=== PATIENT | female | born 1995 ===

== ENCOUNTER 2019-08-12 20:21 | Inpatient (IN) | payer BC, OTHER ==
[2019-08-12] MEDS ORDERED: Nalbuphine 10 MG/1 ML Vial IVPUSH PRN (20:34)
[2019-08-12] MEDS ORDERED: Sodium Chloride 0.9% 10 ML Syringe FLUSH PRN (20:34)
[2019-08-12] MEDS ORDERED: Sodium Chloride 0.9% 10 ML SDV IV PRN (20:34)
[2019-08-12] MEDS ORDERED: Water For Irrigation,Sterile 1,000 ML Container IRR PRN (20:34)
[2019-08-12] MEDS ORDERED: Butorphanol 1 MG/ML SDV IVPUSH PRN (20:34)
[2019-08-12] MEDS ORDERED: Lidocaine 1% 50 ML MDV INJECT PRN (20:34)
[2019-08-12] MEDS ORDERED: Misoprostol 25 MCG (1/4 of 100 MCG) Tab VAG PRN ×2 (20:34)
[2019-08-12] MEDS ORDERED: Carboprost Tromethamine 250 MCG/1 ML Amp IM PRN (20:34)
[2019-08-12] MEDS ORDERED: Sodium Chloride 0.9% 2.5 ML Syringe FLUSH PRN (20:34)
[2019-08-12] MEDS ORDERED: Ondansetron 4 MG/2 ML SDV IVPUSH PRN (20:34)
[2019-08-12] MEDS ORDERED: Misoprostol 200 MCG Tab PO PRN (20:34)
[2019-08-12] MEDS ORDERED: Terbutaline 1 MG/ML SDV SUBCUT PRN (20:34)
[2019-08-12] MEDS ORDERED: Methylergonovine 0.2 MG/1 ML Amp IM PRN (20:34)
[2019-08-12] MEDS ORDERED: Tranexamic Acid 1,000 MG in Sodium Chloride 0.9% 100 ML IV PRN (20:34)
[2019-08-12] MEDS ORDERED: Oxytocin/0.9 % Sodium Chloride 30 UNIT/500 ML BAG IV SCH ×2 (20:45)
[2019-08-12] MEDS: Lactated Ringers 1,000 ML IV SCH (22:07)
[2019-08-13 08:20] LABS: BLOOD UREA NITROGEN,BUN 5 mg/dL (7.0-18.0); CARBON DIOXIDE,CO2 26.3 mmol/L (21.0-32.0); CHLORIDE,CL 103 mmol/L (98-107); GLUCOSE RANDOM 83 mg/dL (74-106); POTASSIUM,K 4.3 mmol/L (3.5-5.1); SODIUM,NA 138 mmol/L (136-145)
[2019-08-13] MEDS ORDERED: Bupivicaine/fentaNYL/NS 250 ML ONE (13:55)
[2019-08-13] MEDS: Lactated Ringers 1,000 ML IV SCH ×3 (13:56→22:42)
--- NOTE | 2019-08-13 14:48 | PCM.PREANE ---
Preanesthetic Assessment - Anesthesia/Transfusion/Family Hx Anesthesia History: Prior Anesthesia Without Reaction Transfusion History: No Prior Transfusion(s) - Review of Systems General: No Symptoms Pulmonary: No Symptoms Cardiovascular: No Symptoms Gastrointestinal: No Symptoms Neurological: No Symptoms Other: Reports: None - Physical Assessment Height: 5 ft 7 in Weight: 112.945 kg ASA Class: 2 Mental Status: Alert & Oriented x3 Airway Class: Mallampati = 2 Dentition: Reports: Normal Dentition Thyro-Mental Finger Breadths: 3 Mouth Opening Finger Breadths: 3 ROM/Head Extension: Full Lungs: Clear to Auscultation, Normal Respiratory Effort Cardiovascular: Regular Rate, Regular Rhythm - Lab Values: Laboratory Last Values WBC 10.30 K/uL (4.0-11.0) 08/13/19 07:46 RBC 4.35 M/uL (4.30-5.90) 08/13/19 07:46 Hgb 12.3 g/dL (12.0-16.0) 08/13/19 07:46 Hct 36.8 % (36.0-46.0) 08/13/19 07:46 MCV 84.6 fL (80.0-98.0) 08/13/19 07:46 MCH 28.3 pg (27.0-32.0) 08/13/19 07:46 MCHC 33.4 g/dL (31.0-37.0) 08/13/19 07:46 RDW Std Deviation 44.8 fl (28.0-62.0) 08/13/19 07:46 RDW Coeff of Maria L 15 % (11.0-15.0) 08/13/19 07:46 Plt Count 174 K/uL (150-400) 08/13/19 07:46 MPV 11.20 fL (7.40-12.00) 08/13/19 07:46 Add Manual Diff YES 08/13/19 07:46 Neutrophils % (Manual) 76 % (48.0-80.0) 08/13/19 07:46 Band Neutrophils % 2 % 08/13/19 07:46 Lymphocytes % (Manual) 17 % (16.0-40.0) 08/13/19 07:46 Monocytes % (Manual) 3 % (0.0-15.0) 08/13/19 07:46 Eosinophils % (Manual) 1 % (0.0-7.0) 08/13/19 07:46 Myelocytes % 1 % 08/13/19 07:46 Absolute Seg Neuts 7.8 (1.4-5.7) H 08/13/19 07:46 Band Neutrophils # 0.2 08/13/19 07:46 Lymphocytes # (Manual) 1.8 (0.6-2.4) 08/13/19 07:46 Monocytes # (Manual) 0.3 (0.0-0.8) 08/13/19 07:46 Eosinophils # (Manual) 0.1 (0.0-0.7) 08/13/19 07:46 Absolute Myelocytes 0.1 08/13/19 07:46 Sodium 138 mmol/L (136-145) 08/13/19 07:46 Potassium 4.3 mmol/L (3.5-5.1) 08/13/19 07:46 Chloride 103 mmol/L (98-107) 08/13/19 07:46 Carbon Dioxide 26.3 mmol/L (21.0-32.0) 08/13/19 07:46 BUN 5 mg/dL (7.0-18.0) L 08/13/19 07:46 Creatinine 0.6 mg/dL (0.6-1.0) 08/13/19 07:46 Est Cr Clr Drug Dosing 141.81 mL/min 08/13/19 07:46 Estimated GFR (MDRD) > 60.0 ml/min 08/13/19 07:46 Glucose 83 mg/dL (74-106) 08/13/19 07:46 Uric Acid 5.7 mg/dL (2.6-7.2) 08/13/19 07:46 Calcium 9.6 mg/dL (8.5-10.1) 08/13/19 07:46 Total Bilirubin 0.3 mg/dL (0.2-1.0) 08/13/19 07:46 AST 15 IU/L (15-37) 08/13/19 07:46 ALT 18 IU/L (14-63) 08/13/19 07:46 Alkaline Phosphatase 188 U/L (46-116) H 08/13/19 07:46 Total Protein 6.8 g/dL (6.4-8.2) 08/13/19 07:46 Albumin 2.4 g/dL (3.4-5.0) L 08/13/19 07:46 Globulin 4.4 g/dL (2.6-4.0) H 08/13/19 07:46 Albumin/Globulin Ratio 0.6 (0.9-1.6) L 08/13/19 07:46 Ur Random Creatinine 139.7 mg/dL 08/13/19 08:10 U Random Total Protein 44.8 mg/dL (<11.9) H 08/13/19 08:10 Protein/Creatinin Ratio 0.3 08/13/19 08:10 Blood Type B POSITIVE 08/12/19 20:53 Antibody Screen NEGATIVE 08/12/19 20:53 - Allergies Allergies/Adverse Reactions: Allergies Allergy/AdvReac Type Severity Reaction Status Date / Time No Known Allergies Allergy Verified 08/13/19 06:53 - Anesthesia Plan Free Text/Narrative:: Continuous Labor Epidural - Acknowledgements Anesthesia Type Planned: Epidural Pt an Appropriate Candidate for the Planned Anesthesia: Yes Alternatives and Risks of Anesthesia Discussed w Pt/Guardian: Yes Pt/Guardian Understands and Agrees with Anesthesia Plan: Yes PreAnesthesia Questionnaire - Past Health History Medical/Surgical History: Denies Medical/Surgical History HEENT History: Reports: None Cardiovascular History: Reports: None Respiratory History: Reports: None Gastrointestinal History: Reports: GERD Other Gastrointestinal History: GERD with Genitourinary History: Reports: None CAMPUS REP History: Reports: : 1 Para: 0 LMP (Approximate): Musculoskeletal History: Reports: None Neurological History: Reports: None Psychiatric History: Reports: None Endocrine/Metabolic History: Reports: None Hematologic History: Reports: None Immunologic History: Reports: None Oncologic (Cancer) History: Reports: None Dermatologic History: Reports: None - Infectious Disease History Infectious Disease History: Reports: Chicken Pox - Past Surgical History HEENT Surgical History: Reports: Oral Surgery Other HEENT Surgeries/Procedures: wisdom teeth - Past Imaging History Past Imaging History: Reports: None - SUBSTANCE USE Smoking Status *Q: Never Smoker Second Hand Smoke Exposure: No Recreational Drug Use History: No - CURRENT (IN HOUSE) MEDS Current Meds: Current Medications Butorphanol Tartrate (Stadol) 1 mg IVPUSH Q1H PRN PRN Reason: Pain Carboprost Tromethamine (Hemabate Ds) 250 mcg IM ASDIRECTED PRN PRN Reason: Post Hemorrhage Lactated Ringer's (Ringers, Lactated) 1,000 mls @ 150 mls/hr IV ASDIRECTED RADHA Last Admin: 08/13/19 13:56 Dose: 999 mls/hr Oxytocin/Sodium Chloride (Oxytocin 30 Unit/500 Ml-Ns) 30 unit in 500 mls @ 2 mls/hr IV TITRATE RADHA; Protocol Last Titration: 08/13/19 10:31 Dose: 14 munits/min, 14 mls/hr Oxytocin/Sodium Chloride (Oxytocin 30 Unit/500 Ml-Ns) 30 unit in 500 mls @ 999 mls/hr IV TITRATE RADHA Tranexamic Acid 1,000 mg/ (Sodium Chloride) 110 mls @ 660 mls/hr IV ONETIME PRN PRN Reason: Bleeding Lidocaine HCl (Xylocaine 1%) 50 ml INJECT ONETIME PRN PRN Reason: Laceration repair Methylergonovine Maleate (Methergine) 0.2 mg IM ASDIRECTED PRN PRN Reason: Post Hemorrhage Misoprostol (Cytotec) 25 mcg VAG ONETIME PRN PRN Reason: Cervical Ripening Last Admin: 08/12/19 22:19 Dose: 25 mcg Misoprostol (Cytotec) 25 mcg VAG Q4H PRN PRN Reason: Cervical Ripening Misoprostol (Cytotec) 200 mcg PO ONETIME PRN PRN Reason: Post Hemorrhage Nalbuphine HCl (Nubain) 10 mg IVPUSH Q1H PRN PRN Reason: Pain (severe 7-10) Ondansetron HCl (Zofran) 4 mg IVPUSH Q6H PRN PRN Reason: Nausea/Vomiting Sodium Chloride (Saline Flush) 10 ml FLUSH ASDIRECTED PRN PRN Reason: Keep Vein Open Sodium Chloride (Saline Flush) 2.5 ml FLUSH ASDIRECTED PRN PRN Reason: Keep Vein Open Sodium Chloride (Normal Saline) 10 ml IV ASDIRECTED PRN PRN Reason: IV Use Sterile Water (Sterile Water For Irrigation) 1,000 ml IRR ASDIRECTED PRN PRN Reason: delivery Terbutaline Sulfate (Brethine) 0.25 mg SUBCUT ASDIRECTED PRN PRN Reason: Tacysystole Discontinued Medications Fentanyl/Bupivacaine HCl (Fentanyl/Bupivacaine/Ns 2 Mcg-0.125% 250 Ml) Confirm Administered Dose 250 mls @ as directed .ROUTE [facility] [employer] [facility] Stop: 08/13/19 13:56
[2019-08-13] MEDS ORDERED: Lanolin 100% Cream 7 GM Tube TOP PRN (22:31)
[2019-08-13] MEDS ORDERED: oxyCODONE 5 MG Tab PO PRN (22:31)
[2019-08-13] MEDS ORDERED: Witch Hazel Medicated Pads 40/Jar TOP PRN (22:31)
[2019-08-13] MEDS ORDERED: Benzocaine/Menthol 20%-0.5% Spray 78 GM Cannister TOP PRN (22:31)
[2019-08-13] MEDS ORDERED: Bisacodyl 10 MG Supp RECTAL PRN (22:31)
--- NOTE | 2019-08-13 22:36 | PCM.DEL ---
L & D Note - General Info Date of Service: 08/13/19 Mother's Due Date: 08/10/19 - Delivery Note Labor: Induced by Oxytocin Cervical Ripening Method: Misoprostil Delivery Outcome: Livebirth Infant Delivery Method: Spontaneous Vaginal Delivery-Single Presentation: Left Occiput Anterior (SAVANNA) Nuchal Cord: None Anesthesia Type: Epidural Anesthetic: Lidocaine (Xylocaine) 1% Plain Local Anesthetic Volume: Other (20) Amniotic Fluid Description: Clear Episiotomy Type: None Laceration: 2nd Degree Suture type: Vicryl Suture size: 2-0 Placenta: Intact, Spontaneous Cord: 3 Vessels Estimated Blood Loss: 600 Resuscitation Needed: Yes Score 1 min: 3 Score 5 min: 8 Post Delivery Events: Shoulder Dystocia (lasting 4 minutes, resolved with suprapubic pressure, Claudio maneuver, dislodging of posterior shoulder) - General Info Date of Service: 08/13/19 - Patient Data Weight - Most Recent: 112.945 kg Lab Results Last 24 Hours: Laboratory Results - last 24 hr 08/13/19 08/13/19 08/13/19 Range/Units 07:46 07:46 08:10 WBC 10.30 (4.0-11.0) K/uL RBC 4.35 (4.30-5.90) M/uL Hgb 12.3 (12.0-16.0) g/dL Hct 36.8 (36.0-46.0) % MCV 84.6 (80.0-98.0) fL MCH 28.3 (27.0-32.0) pg MCHC 33.4 (31.0-37.0) g/dL RDW Std Deviation 44.8 (28.0-62.0) fl RDW Coeff of Maria L 15 (11.0-15.0) % Plt Count 174 (150-400) K/uL MPV 11.20 (7.40-12.00) fL Add Manual Diff YES Neutrophils % (Manual) 76 (48.0-80.0) % Band Neutrophils % 2 % Lymphocytes % (Manual) 17 (16.0-40.0) % Monocytes % (Manual) 3 (0.0-15.0) % Eosinophils % (Manual) 1 (0.0-7.0) % Myelocytes % 1 % Absolute Seg Neuts 7.8 H (1.4-5.7) Band Neutrophils # 0.2 Lymphocytes # (Manual) 1.8 (0.6-2.4) Monocytes # (Manual) 0.3 (0.0-0.8) Eosinophils # (Manual) 0.1 (0.0-0.7) Absolute Myelocytes 0.1 Sodium 138 (136-145) mmol/L Potassium 4.3 (3.5-5.1) mmol/L Chloride 103 (98-107) mmol/L Carbon Dioxide 26.3 (21.0-32.0) mmol/L BUN 5 L (7.0-18.0) mg/dL Creatinine 0.6 (0.6-1.0) mg/dL Est Cr Clr Drug Dosing 141.81 mL/min Estimated GFR (MDRD) > 60.0 ml/min Glucose 83 (74-106) mg/dL Uric Acid 5.7 (2.6-7.2) mg/dL Calcium 9.6 (8.5-10.1) mg/dL Total Bilirubin 0.3 (0.2-1.0) mg/dL AST 15 (15-37) IU/L ALT 18 (14-63) IU/L Alkaline Phosphatase 188 H (46-116) U/L Total Protein 6.8 (6.4-8.2) g/dL Albumin 2.4 L (3.4-5.0) g/dL Globulin 4.4 H (2.6-4.0) g/dL Albumin/Globulin Ratio 0.6 L (0.9-1.6) Ur Random Creatinine 139.7 mg/dL U Random Total Protein 44.8 H (<11.9) mg/dL Protein/Creatinin Ratio 0.3 Med Orders - Current: Current Medications Acetaminophen (Tylenol Extra Strength) 1,000 mg PO Q6H PRN PRN Reason: Pain Benzocaine/Menthol (Dermoplast Pain Relief 20%-0.5% [place]) 78 gm TOP ASDIRECTED PRN PRN Reason: Perineal Comfort Measure Bisacodyl (Dulcolax) 10 mg RECTAL ONETIME PRN PRN Reason: Constipation Butorphanol Tartrate (Stadol) 1 mg IVPUSH Q1H PRN PRN Reason: Pain Carboprost Tromethamine (Hemabate Ds) 250 mcg IM ASDIRECTED PRN PRN Reason: Post Hemorrhage Docusate Sodium (Colace) 100 mg PO BID PRN PRN Reason: Constipation Emollient Ointment (Lansinoh Hpa) 0 gm TOP ASDIRECTED PRN PRN Reason: Sore Nipples Lactated Ringer's (Ringers, Lactated) 1,000 mls @ 150 mls/hr IV ASDIRECTED RADHA Last Admin: 08/13/19 14:53 Dose: 150 mls/hr Oxytocin/Sodium Chloride (Oxytocin 30 Unit/500 Ml-Ns) 30 unit in 500 mls @ 2 mls/hr IV TITRATE RADHA; Protocol Last Titration: 08/13/19 18:11 Dose: 20 munits/min, 20 mls/hr Oxytocin/Sodium Chloride (Oxytocin 30 Unit/500 Ml-Ns) 30 unit in 500 mls @ 999 mls/hr IV TITRATE RADHA Tranexamic Acid 1,000 mg/ (Sodium Chloride) 110 mls @ 660 mls/hr IV ONETIME PRN PRN Reason: Bleeding Ibuprofen (Motrin) 800 mg PO Q8H PRN PRN Reason: Pain Lidocaine HCl (Xylocaine 1%) 50 ml INJECT ONETIME PRN PRN Reason: Laceration repair Methylergonovine Maleate (Methergine) 0.2 mg IM ASDIRECTED PRN PRN Reason: Post Hemorrhage Misoprostol (Cytotec) 25 mcg VAG ONETIME PRN PRN Reason: Cervical Ripening Last Admin: 08/12/19 22:19 Dose: 25 mcg Misoprostol (Cytotec) 25 mcg VAG Q4H PRN PRN Reason: Cervical Ripening Misoprostol (Cytotec) 200 mcg PO ONETIME PRN PRN Reason: Post Hemorrhage Nalbuphine HCl (Nubain) 10 mg IVPUSH Q1H PRN PRN Reason: Pain (severe 7-10) Ondansetron HCl (Zofran) 4 mg IVPUSH Q6H PRN PRN Reason: Nausea/Vomiting Oxycodone HCl (Oxycodone) 5 mg PO Q2H PRN PRN Reason: Pain Sodium Chloride (Saline Flush) 10 ml FLUSH ASDIRECTED PRN PRN Reason: Keep Vein Open Sodium Chloride (Saline Flush) 2.5 ml FLUSH ASDIRECTED PRN PRN Reason: Keep Vein Open Sodium Chloride (Normal Saline) 10 ml IV ASDIRECTED PRN PRN Reason: IV Use Sterile Water (Sterile Water For Irrigation) 1,000 ml IRR ASDIRECTED PRN PRN Reason: delivery Terbutaline Sulfate (Brethine) 0.25 mg SUBCUT ASDIRECTED PRN PRN Reason: Tacysystole Witch Cecy (Tucks) 1 pad TOP ASDIRECTED PRN PRN Reason: comfort care Discontinued Medications Fentanyl/Bupivacaine HCl (Fentanyl/Bupivacaine/Ns 2 Mcg-0.125% 250 Ml) Confirm Administered Dose 250 mls @ as directed .ROUTE .[email or web address] Stop: 08/13/19 13:56 - Problem List & Annotations (1) Vaginal delivery SNOMED Code(s): 068915551 Code(s): O80 - ENCOUNTER FOR FULL-TERM UNCOMPLICATED DELIVERY Status: Acute Current Visit: Yes (2) Shoulder dystocia during labor and delivery, delivered SNOMED Code(s): 119105587, 652534804 Code(s): O66.0 - OBSTRUCTED LABOR DUE TO SHOULDER DYSTOCIA Status: Acute Current Visit: Yes - Problem List Review Problem List Initiated/Reviewed/Updated: Yes - My Orders Last 24 Hours: My Active Orders 08/13/19 22:31 Patient Status [ADT] Routine May Shower [RC] ASDIRECTED Notify Provider Vital Signs [RC] ASDIRECTED Up ad Carol [RC] ASDIRECTED Vital Signs [RC] PER UNIT ROUTINE Acetaminophen [Tylenol Extra Strength] 1,000 mg PO Q6H PRN Benzocaine/Menthol [Dermoplast Pain Relief 20%-0.5% [place]] 78 gm TOP ASDIRECTED PRN Docusate Sodium [Colace] 100 mg PO BID PRN Ibuprofen [Motrin] 800 mg PO Q8H PRN Lanolin [Lansinoh HPA] See Dose Instructions TOP ASDIRECTED PRN bisacodyL [Dulcolax] 10 mg RECTAL ONETIME PRN oxyCODONE 5 mg PO Q2H PRN witch Cecy [Tucks] 1 pad TOP ASDIRECTED PRN Assess Lochia [WOMSER] Per Unit Routine Assess Uterine Involution [WOMSER] Per Unit Routine Breast Pump [WOMSER] Per Unit Routine Ice Therapy [OM.PC] Per Unit Routine Perineal Care [OM.PC] Per Unit Routine Peripheral IV Discontinue [OM.PC] Routine Sitz Bath [OM.PC] Per Unit Routine 08/13/19 22:32 Cooling Warming Measures [RC] ASDIRECTED BLOOD GAS ARTERIAL UMBILICAL [BG] Routine BLOOD GAS VENOUS UMBILICAL [BG] Routine 08/13/19 Dinner Regular Diet [DIET] 08/14/19 05:11 HEMOGLOBIN/HEMATOCRIT,HH [HEME] Timed - Assessment Assessment:: 23yo s/p at 40w3d. - Plan Plan:: Admit to unit for routine care.
--- NOTE | 2019-08-14 04:17 | OR ---
SURGEON: Merlene Santana MD DATE OF PROCEDURE: 08/13/2019 PREOPERATIVE DIAGNOSES: 1. 23-year-old G1, P0 at 40 weeks and 3 days gestation. 2. Induction of labor for post dates. 3. GBS negative. POSTOPERATIVE DIAGNOSES: A 23-year-old G1, P1-0-0-1 status post spontaneous vaginal delivery at 40 weeks and 3 days gestation. PROCEDURE: Spontaneous vaginal delivery and repair of second-degree perineal laceration. PRIMARY SURGEON: Merlene Santana MD. ESTIMATED BLOOD LOSS: 600 mL. ANESTHESIA: Epidural and lidocaine. FINDINGS: Live male in left occiput anterior position. score of 3 and 8 at one and five minutes respectively. Weight 5030 g. Shoulder dystocia lasting approximately 4 minutes, relieved with posterior shoulder shrug. Placenta intact and with 3-vessel cord. Second-degree perineal laceration. Umbilical artery pH 7.313, base excess -6. Umbilical venous pH 7.273, base excess -5. INDICATIONS: This is a 23-year-old G1, P0, who presented at 40 weeks and 2 days gestation for planned induction of labor due to post due date. Induction of labor was begun with misoprostol and switched to Pitocin when patient began percy regularly. She received an epidural for pain control. At approximately 6 cm dilated, artificial rupture of membranes occurred with clear fluid noted. She progressed to complete cervical dilation and I was called to the room. DESCRIPTION OF PROCEDURE: The patient progressed to complete cervical dilation. She began pushing. The head was delivered and the shoulders did not quickly follow. At this time, a shoulder dystocia was identified and announced to the nurses in the room. Claudio' maneuver and suprapubic pressure were applied. This did not relieve the shoulder dystocia. A rapid response was called and the sheet metal worker maintenance was called to come to the room. The 's positioning was evaluated and the infant's right shoulder was lodged underneath the pubic bone. I attempted rotation of the shoulders, and while the shoulders rotated easily, this did not facilitate delivery of the . The spontaneously reverted to having the right shoulder lodged underneath the pubic bone. Delivery of the posterior arm was attempted; however, the arm was straight and was unable to be delivered. A shoulder shrug maneuver was undertaken and this resulted in movement of the posterior left shoulder, which allowed delivery of the 's body with maternal pushing efforts. The cord was quickly clamped and cut and handed to the awaiting nurse for evaluation. The entire shoulder dystocia lasted 4 minutes. The placenta then delivered spontaneously intact and with 3-vessel cord. The perineum was inspected and a second-degree perineal laceration was noted. This was infiltrated with 1% lidocaine. Once adequate analgesia was obtained, this was repaired with 2-0 Vicryl suture to anatomy and hemostasis. The fundus was firm. The patient tolerated the delivery well. CHAPIS / NANCY /[id number] SARAHI
[2019-08-14] MEDS: Docusate Sodium 100 MG Cap PO PRN ×2 (07:47→18:21)
[2019-08-14] MEDS: Ibuprofen 800 MG Tab PO PRN ×2 (07:47→23:45)
--- NOTE | 2019-08-14 09:33 | PCM.PNPP ---
- General Info Date of Service: 08/14/19 Admission Dx/Problem (Free Text): Patient doing well. Pain controlled. Voiding and ambulating without difficulty. going well. Minimal lochia. Functional Status: Reports: Pain Controlled, Tolerating Diet, Ambulating, Urinating - Review of Systems General: Reports: No Symptoms HEENT: Reports: No Symptoms Pulmonary: Reports: No Symptoms Cardiovascular: Reports: No Symptoms Gastrointestinal: Reports: No Symptoms Genitourinary: Reports: No Symptoms Musculoskeletal: Reports: No Symptoms Skin: Reports: No Symptoms Neurological: Reports: No Symptoms Psychiatric: Reports: No Symptoms - Patient Data Vital Signs - Most Recent: Last Vital Signs Temp 36.3 C 08/14/19 04:48 Pulse 118 H 08/14/19 09:20 Resp 18 08/14/19 09:20 BP 119/68 08/14/19 09:20 Pulse Ox 97 08/14/19 09:20 Weight - Most Recent: 112.945 kg Lab Results - Last 24 Hours: Laboratory Results - last 24 hr 08/13/19 08/14/19 Range/Units 21:14 05:55 Hgb 9.2 L (12.0-16.0) g/dL Hct 27.9 L (36.0-46.0) % Cord ABG pH 7.313 (7.18-7.38) Cord ABG Base Excess -6 (-10--2) Cord VBG pH 7.273 (7.25-7.45) Cord VBG Base Excess -5 (-10--2) Med Orders - Current: Current Medications Acetaminophen (Tylenol Extra Strength) 1,000 mg PO Q6H PRN PRN Reason: Pain Benzocaine/Menthol (Dermoplast Pain Relief 20%-0.5% [place]) 78 gm TOP ASDIRECTED PRN PRN Reason: Perineal Comfort Measure Last Admin: 08/14/19 07:46 Dose: 1 can Bisacodyl (Dulcolax) 10 mg RECTAL ONETIME PRN PRN Reason: Constipation Butorphanol Tartrate (Stadol) 1 mg IVPUSH Q1H PRN PRN Reason: Pain Carboprost Tromethamine (Hemabate Ds) 250 mcg IM ASDIRECTED PRN PRN Reason: Post Hemorrhage Docusate Sodium (Colace) 100 mg PO BID PRN PRN Reason: Constipation Last Admin: 08/14/19 07:47 Dose: 100 mg Emollient Ointment (Lansinoh Hpa) 0 gm TOP ASDIRECTED PRN PRN Reason: Sore Nipples Last Admin: 08/14/19 07:46 Dose: 7 gram Lactated Ringer's (Ringers, Lactated) 1,000 mls @ 150 mls/hr IV ASDIRECTED RADHA Last Admin: 08/13/19 22:42 Dose: 150 mls/hr Oxytocin/Sodium Chloride (Oxytocin 30 Unit/500 Ml-Ns) 30 unit in 500 mls @ 2 mls/hr IV TITRATE RADHA; Protocol Last Titration: 08/13/19 21:50 Dose: Infused Oxytocin/Sodium Chloride (Oxytocin 30 Unit/500 Ml-Ns) 30 unit in 500 mls @ 999 mls/hr IV TITRATE RADHA Tranexamic Acid 1,000 mg/ (Sodium Chloride) 110 mls @ 660 mls/hr IV ONETIME PRN PRN Reason: Bleeding Ibuprofen (Motrin) 800 mg PO Q8H PRN PRN Reason: Pain Last Admin: 08/14/19 07:47 Dose: 800 mg Lidocaine HCl (Xylocaine 1%) 50 ml INJECT ONETIME PRN PRN Reason: Laceration repair Last Admin: 08/13/19 22:43 Dose: 50 ml Methylergonovine Maleate (Methergine) 0.2 mg IM ASDIRECTED PRN PRN Reason: Post Hemorrhage Misoprostol (Cytotec) 25 mcg VAG ONETIME PRN PRN Reason: Cervical Ripening Last Admin: 08/12/19 22:19 Dose: 25 mcg Misoprostol (Cytotec) 25 mcg VAG Q4H PRN PRN Reason: Cervical Ripening Misoprostol (Cytotec) 200 mcg PO ONETIME PRN PRN Reason: Post Hemorrhage Nalbuphine HCl (Nubain) 10 mg IVPUSH Q1H PRN PRN Reason: Pain (severe 7-10) Ondansetron HCl (Zofran) 4 mg IVPUSH Q6H PRN PRN Reason: Nausea/Vomiting Oxycodone HCl (Oxycodone) 5 mg PO Q2H PRN PRN Reason: Pain Sodium Chloride (Saline Flush) 10 ml FLUSH ASDIRECTED PRN PRN Reason: Keep Vein Open Sodium Chloride (Saline Flush) 2.5 ml FLUSH ASDIRECTED PRN PRN Reason: Keep Vein Open Sodium Chloride (Normal Saline) 10 ml IV ASDIRECTED PRN PRN Reason: IV Use Sterile Water (Sterile Water For Irrigation) 1,000 ml IRR ASDIRECTED PRN PRN Reason: delivery Last Admin: 08/14/19 00:27 Dose: 1,000 ml Terbutaline Sulfate (Brethine) 0.25 mg SUBCUT ASDIRECTED PRN PRN Reason: Tacysystole Haresh Sam (Tucks) 1 pad TOP ASDIRECTED PRN PRN Reason: comfort care Last Admin: 08/14/19 07:46 Dose: 1 tub Discontinued Medications Fentanyl/Bupivacaine HCl (Fentanyl/Bupivacaine/Ns 2 Mcg-0.125% 250 Ml) Confirm Administered Dose 250 mls @ as directed .ROUTE .[facility] Stop: 08/13/19 13:56 - Infant Interaction Disposition, : in Room with Family Interaction: Holding Infant Feeding: Attempted ; Nursed Fair/Poor Support Person: - Recovery Exam Fundal Tone: Firm Fundal Level: 1 Fingerbreadths Below Umbilicus Fundal Placement: Midline Lochia Amount: Small Lochia Color: Rubra/Red Bladder Status: Voiding Urinary Elimination: Voided Other Urinary Elimination, : Due to Void - Exam General: Alert, Oriented Neck: Supple Lungs: Clear to Auscultation, Normal Respiratory Effort Cardiovascular: Regular Rate, Regular Rhythm GI/Abdominal Exam: Soft, Non-Tender Extremities: Non-Tender Skin: Warm, Dry, Intact Neurological: No New Focal Deficit Psy/Mental Status: Alert, Normal Affect, Normal Mood - Problem List & Annotations (1) Vaginal delivery SNOMED Code(s): 061268686 Code(s): O80 - ENCOUNTER FOR FULL-TERM UNCOMPLICATED DELIVERY Status: Acute Current Visit: Yes (2) Shoulder dystocia during labor and delivery, delivered SNOMED Code(s): 538044708, 219648196 Code(s): O66.0 - OBSTRUCTED LABOR DUE TO SHOULDER DYSTOCIA Status: Acute Current Visit: Yes - Problem List Review Problem List Initiated/Reviewed/Updated: Yes - My Orders Last 24 Hours: My Active Orders 08/13/19 22:31 Patient Status [ADT] Routine May Shower [RC] ASDIRECTED Notify Provider Vital Signs [RC] ASDIRECTED Up ad Carol [RC] ASDIRECTED Vital Signs [RC] PER UNIT ROUTINE Acetaminophen [Tylenol Extra Strength] 1,000 mg PO Q6H PRN Benzocaine/Menthol [Dermoplast Pain Relief 20%-0.5% [place]] 78 gm TOP ASDIRECTED PRN Docusate Sodium [Colace] 100 mg PO BID PRN Ibuprofen [Motrin] 800 mg PO Q8H PRN Lanolin [Lansinoh HPA] See Dose Instructions TOP ASDIRECTED PRN bisacodyL [Dulcolax] 10 mg RECTAL ONETIME PRN oxyCODONE 5 mg PO Q2H PRN witch Lakisha [Tucks] 1 pad TOP ASDIRECTED PRN Assess Lochia [WOMSER] Per Unit Routine Assess Uterine Involution [WOMSER] Per Unit Routine Breast Pump [WOMSER] Per Unit Routine Ice Therapy [OM.PC] Per Unit Routine Perineal Care [OM.PC] Per Unit Routine Peripheral IV Discontinue [OM.PC] Routine Sitz Bath [OM.PC] Per Unit Routine 08/13/19 Dinner Regular Diet [DIET] - Assessment Assessment:: 23yo s/p at 40w3d, PPD#1. - Plan Plan:: Patient meeting all milestones thus far. Undecided if she desires discharge home this evening, will readdress this afternoon.
--- NOTE | 2019-08-14 09:42 | PCM48HPAN ---
Post Anesthesia Note - EVALUATION WITHIN 48HRS OF ANESTHETIC Vital Signs in Normal Range: Yes Patient Participated in Evaluation: Yes Respiratory Function Stable: Yes Airway Patent: Yes Cardiovascular Function Stable: Yes Hydration Status Stable: Yes Pain Control Satisfactory: Yes Nausea and Vomiting Control Satisfactory: Yes Mental Status Recovered: Yes Vital Signs: Last Vital Signs Temp 36.3 C 08/14/19 04:48 Pulse 118 H 08/14/19 09:20 Resp 18 08/14/19 09:20 BP 119/68 08/14/19 09:20 Pulse Ox 97 08/14/19 09:20 - COMMENTS/OBSERVATIONS Free Text/Narrative:: Patient doing well after epidural and delivery. No complaints and no anesthesia complications noted.
[2019-08-14] MEDS: Acetaminophen 500 MG Tab PO PRN ×2 (12:23→18:21)
--- NOTE | 2019-08-15 12:25 | PCM.PNPP ---
- General Info Date of Service: 08/15/19 Admission Dx/Problem (Free Text): Patient doing well. Pain controlled. Voiding and ambulating without difficulty. with difficulty, supplementing due to low blood sugar. Minimal lochia. Functional Status: Reports: Pain Controlled, Tolerating Diet, Ambulating, Urinating - Review of Systems General: Reports: No Symptoms HEENT: Reports: No Symptoms Pulmonary: Reports: No Symptoms Cardiovascular: Reports: No Symptoms Gastrointestinal: Reports: No Symptoms Genitourinary: Reports: No Symptoms Musculoskeletal: Reports: No Symptoms Skin: Reports: No Symptoms Neurological: Reports: No Symptoms Psychiatric: Reports: No Symptoms - Patient Data Vital Signs - Most Recent: Last Vital Signs Temp 36.1 C 08/15/19 08:15 Pulse 75 08/15/19 08:15 Resp 16 08/15/19 08:15 BP 115/63 08/15/19 08:15 Pulse Ox 100 08/15/19 08:15 Weight - Most Recent: 112.945 kg Med Orders - Current: Current Medications Acetaminophen (Tylenol Extra Strength) 1,000 mg PO Q6H PRN PRN Reason: Pain Last Admin: 08/14/19 18:21 Dose: 1,000 mg Benzocaine/Menthol (Dermoplast Pain Relief 20%-0.5% [place]) 78 gm TOP ASDIRECTED PRN PRN Reason: Perineal Comfort Measure Last Admin: 08/14/19 07:46 Dose: 1 can Bisacodyl (Dulcolax) 10 mg RECTAL ONETIME PRN PRN Reason: Constipation Butorphanol Tartrate (Stadol) 1 mg IVPUSH Q1H PRN PRN Reason: Pain Carboprost Tromethamine (Hemabate Ds) 250 mcg IM ASDIRECTED PRN PRN Reason: Post Hemorrhage Docusate Sodium (Colace) 100 mg PO BID PRN PRN Reason: Constipation Last Admin: 08/14/19 18:21 Dose: 100 mg Emollient Ointment (Lansinoh Hpa) 0 gm TOP ASDIRECTED PRN PRN Reason: Sore Nipples Last Admin: 08/14/19 07:46 Dose: 7 gram Lactated Ringer's (Ringers, Lactated) 1,000 mls @ 150 mls/hr IV ASDIRECTED RADHA Last Admin: 08/13/19 22:42 Dose: 150 mls/hr Oxytocin/Sodium Chloride (Oxytocin 30 Unit/500 Ml-Ns) 30 unit in 500 mls @ 2 mls/hr IV TITRATE RADHA; Protocol Last Titration: 08/13/19 21:50 Dose: Infused Oxytocin/Sodium Chloride (Oxytocin 30 Unit/500 Ml-Ns) 30 unit in 500 mls @ 999 mls/hr IV TITRATE RADHA Tranexamic Acid 1,000 mg/ (Sodium Chloride) 110 mls @ 660 mls/hr IV ONETIME PRN PRN Reason: Bleeding Ibuprofen (Motrin) 800 mg PO Q8H PRN PRN Reason: Pain Last Admin: 08/14/19 23:45 Dose: 800 mg Lidocaine HCl (Xylocaine 1%) 50 ml INJECT ONETIME PRN PRN Reason: Laceration repair Last Admin: 08/13/19 22:43 Dose: 50 ml Methylergonovine Maleate (Methergine) 0.2 mg IM ASDIRECTED PRN PRN Reason: Post Hemorrhage Misoprostol (Cytotec) 25 mcg VAG ONETIME PRN PRN Reason: Cervical Ripening Last Admin: 08/12/19 22:19 Dose: 25 mcg Misoprostol (Cytotec) 25 mcg VAG Q4H PRN PRN Reason: Cervical Ripening Misoprostol (Cytotec) 200 mcg PO ONETIME PRN PRN Reason: Post Hemorrhage Nalbuphine HCl (Nubain) 10 mg IVPUSH Q1H PRN PRN Reason: Pain (severe 7-10) Ondansetron HCl (Zofran) 4 mg IVPUSH Q6H PRN PRN Reason: Nausea/Vomiting Oxycodone HCl (Oxycodone) 5 mg PO Q2H PRN PRN Reason: Pain Sodium Chloride (Saline Flush) 10 ml FLUSH ASDIRECTED PRN PRN Reason: Keep Vein Open Sodium Chloride (Saline Flush) 2.5 ml FLUSH ASDIRECTED PRN PRN Reason: Keep Vein Open Sodium Chloride (Normal Saline) 10 ml IV ASDIRECTED PRN PRN Reason: IV Use Sterile Water (Sterile Water For Irrigation) 1,000 ml IRR ASDIRECTED PRN PRN Reason: delivery Last Admin: 08/14/19 00:27 Dose: 1,000 ml Terbutaline Sulfate (Brethine) 0.25 mg SUBCUT ASDIRECTED PRN PRN Reason: Tacysystole Haresh Sam (Tucks) 1 pad TOP ASDIRECTED PRN PRN Reason: comfort care Last Admin: 08/14/19 07:46 Dose: 1 tub Discontinued Medications Fentanyl/Bupivacaine HCl (Fentanyl/Bupivacaine/Ns 2 Mcg-0.125% 250 Ml) Confirm Administered Dose 250 mls @ as directed .ROUTE .STK-MED ONE Stop: 08/13/19 13:56 - Infant Interaction Infant Disposition, : [facility] in Room with Family Infant Interaction: Holding Infant Feeding: Attempted ; Nursed Fair/Poor Support Person: - Recovery Exam Fundal Tone: Firm Fundal Level: 1 Fingerbreadths Below Umbilicus Fundal Placement: Midline Lochia Amount: Scant Lochia Color: Rubra/Red Bladder Status: Voiding Urinary Elimination: Voided Other Urinary Elimination, : Due to Void - Exam General: Alert, Oriented Neck: Supple Lungs: Clear to Auscultation, Normal Respiratory Effort Cardiovascular: Regular Rate, Regular Rhythm GI/Abdominal Exam: Soft, Non-Tender Extremities: Non-Tender Skin: Warm, Dry, Intact Neurological: No New Focal Deficit Psy/Mental Status: Alert, Normal Affect, Normal Mood - Problem List & Annotations (1) Vaginal delivery SNOMED Code(s): 542147738 Code(s): O80 - ENCOUNTER FOR FULL-TERM UNCOMPLICATED DELIVERY Status: Acute Current Visit: Yes (2) Shoulder dystocia during labor and delivery, delivered SNOMED Code(s): 518921511, 281184659 Code(s): O66.0 - OBSTRUCTED LABOR DUE TO SHOULDER DYSTOCIA Status: Acute Current Visit: Yes - Problem List Review Problem List Initiated/Reviewed/Updated: Yes - My Orders Last 24 Hours: My Active Orders 08/15/19 12:22 Ready for Discharge [RC] PER UNIT ROUTINE - Assessment Assessment:: 23yo s/p at 40w3d, PPD#2. - Plan Plan:: Discharge instructions reviewed. Patient to room in with if room available. Reviewed depression signs/symptoms and that difficulty is common cause of depression. Encouraged patient to continue working on latch and pumping, as this will help establish milk supply.
== END 2019-08-15 17:44 | disposition home or self-care (01) | DRG 560 ==
LOC: MW.OB 20:21 → OBSVTOIN 21:17 → INTOOBSV 21:17 → OBSVTOIN 08-13 21:17 → MW.OB 08-14 08:31
PROVIDERS: ADMIT Obstetrics & Gynecology; ATTEND Obstetrics & Gynecology
PROC: 10E0XZZ Delivery of Products of Conception, External Approach (ICD-10-PCS; principal; 2019-08-13)
PROC: 3E033VJ Introduction of Other Hormone into Peripheral Vein, Percutaneous Approach (ICD-10-PCS; 2019-08-13)
PROC: 3E0P7VZ Introduction of Hormone into Female Reproductive, Via Natural or Artificial Opening (ICD-10-PCS; 2019-08-13)
PROC: 0KQM0ZZ Repair Perineum Muscle, Open Approach (ICD-10-PCS; 2019-08-13)
PROC: 3E0R3BZ Introduction of Anesthetic Agent into Spinal Canal, Percutaneous Approach (ICD-10-PCS; 2019-08-13)
PROC: 10907ZC Drainage of Amniotic Fluid, Therapeutic from Products of Conception, Via Natural or Artificial Opening (ICD-10-PCS; 2019-08-13)
DX: O48.0 Post-term pregnancy (principal); O66.0 Obstructed labor due to shoulder dystocia; Z37.0 Single live birth; O70.1 Second degree perineal laceration during delivery; Z79.899 Other long term (current) drug therapy; Z3A.40 40 weeks gestation of pregnancy
CPT/HCPCS: 36415; 51702; 59025; 59409; 80053; 82570; 82803; 84156; 84550; 85014; 85018; 85025; 85027; 86592; 86593; 86850; 86900; 86901; A9270-GY; J2001; J2590; J3010; J7120

== ENCOUNTER 2021-10-26 17:49 | Inpatient (IN) | payer BC ==
[2021-10-26] MEDS ORDERED: Terbutaline 1 MG/ML SDV SUBCUT PRN (18:34)
[2021-10-26] MEDS ORDERED: Methylergonovine 0.2 MG/1 ML Amp IM PRN (18:35)
[2021-10-26] MEDS ORDERED: Sodium Chloride 0.9% 10 ML Syringe FLUSH PRN (18:35)
[2021-10-26] MEDS ORDERED: Tranexamic Acid 1,000 MG in Sodium Chloride 0.9% 100 ML IV PRN (18:35)
[2021-10-26] MEDS ORDERED: Sodium Chloride 0.9% 2.5 ML Syringe FLUSH PRN (18:35)
[2021-10-26] MEDS ORDERED: Ondansetron 4 MG/2 ML SDV IVPUSH PRN (18:35)
[2021-10-26] MEDS ORDERED: Carboprost Tromethamine 250 MCG/1 ML Amp IM PRN (18:35)
[2021-10-26] MEDS ORDERED: Misoprostol 200 MCG Tab PO PRN (18:35)
[2021-10-26] MEDS ORDERED: Butorphanol 1 MG/ML SDV IVPUSH PRN (18:35)
[2021-10-26] MEDS ORDERED: Sodium Chloride 0.9% 20 ML SDV IV PRN (18:35)
[2021-10-26] MEDS ORDERED: Lidocaine 1% 50 ML MDV INJECT PRN (18:35)
[2021-10-26] MEDS ORDERED: Water For Irrigation,Sterile 1,000 ML Container IRR PRN (18:35)
[2021-10-26] MEDS ORDERED: Oxytocin/0.9 % Sodium Chloride 30 UNIT/500 ML BAG IV SCH ×2 (18:45)
[2021-10-26] MEDS: Lactated Ringers 1,000 ML IV SCH (19:39)
[2021-10-26] MEDS: Misoprostol 25 MCG (1/4 of 100 MCG) Tab VAG PRN (19:41)
[2021-10-27] MEDS: Misoprostol 25 MCG (1/4 of 100 MCG) Tab VAG PRN (00:28)
[2021-10-27] MEDS: Lactated Ringers 1,000 ML IV SCH ×2 (02:11→14:29)
[2021-10-27] MEDS ORDERED: ceFAZolin 2 GM in Premix Bag 1 BAG IV ONE (17:20)
[2021-10-27] MEDS ORDERED: Morphine PF 10 MG/10 ML SDV ONE (17:44)
[2021-10-27] MEDS ORDERED: Ketorolac 30 MG/ML SDV ONE (18:36)
[2021-10-27] MEDS ORDERED: Bisacodyl 10 MG Supp RECTAL PRN (18:56)
[2021-10-27] MEDS ORDERED: Ibuprofen 800 MG Tab PO PRN (18:56)
[2021-10-27] MEDS ORDERED: diphenhydrAMINE 50 MG/ML SDV IVPUSH PRN ×2 (18:56→19:11)
[2021-10-27] MEDS ORDERED: Oxytocin 10 Units/1 ML SDV IM PRN (18:56)
[2021-10-27] MEDS ORDERED: Aluminum Hydroxide/Magnesium Hydroxide/Simethicone XS Susp 30 ML Cup PO PRN (18:56)
[2021-10-27] MEDS ORDERED: Acetaminophen/oxyCODONE 325-5 MG Tab PO PRN ×2 (18:56)
[2021-10-27] MEDS ORDERED: Ondansetron 4 MG/2 ML SDV IVPUSH PRN ×2 (18:56→19:11)
[2021-10-27] MEDS ORDERED: Lanolin 100% Cream 7 GM Tube TOP PRN (18:56)
[2021-10-27] MEDS ORDERED: Ketorolac 30 MG/ML SDV IVPUSH SCH (19:00)
[2021-10-27] MEDS ORDERED: Lactated Ringers 1,000 ML IV SCH (19:00)
[2021-10-27] MEDS ORDERED: fentaNYL 100 MCG/2 ML SDV IVPUSH PRN (19:11)
[2021-10-27] MEDS ORDERED: Naloxone 0.4 MG/ML SDV IVPUSH PRN (19:11)
[2021-10-27] MEDS ORDERED: Nalbuphine HCl 10 MG/ 1ML Amp IVPUSH PRN (19:11)
[2021-10-28] MEDS: Simethicone 80 MG Tab.Chew PO SCH ×4 (01:27→19:45)
[2021-10-28] MEDS: Ketorolac 30 MG/ML SDV IVPUSH SCH ×4 (01:37→19:46)
[2021-10-28] MEDS: Docusate Sodium 100 MG Cap PO SCH ×3 (07:43→22:55)
[2021-10-29] MEDS: Simethicone 80 MG Tab.Chew PO SCH ×3 (00:52→14:00)
[2021-10-29] MEDS: Docusate Sodium 100 MG Cap PO SCH (11:56)
== END 2021-10-29 14:42 | disposition home or self-care (01) | DRG 540 ==
LOC: MW.OBCHECK 17:49 → MW.OB 17:50 → MW.OBCHECK 17:53 → MW.OB 17:53 → OBSVTOIN 10-27 18:17 → MW.OB 10-27 22:06
PROVIDERS: ADMIT Obstetrics & Gynecology; ATTEND Obstetrics & Gynecology
PROC: 10D00Z1 Extraction of Products of Conception, Low, Open Approach (ICD-10-PCS; principal; 2021-10-27)
PROC: 10907ZC Drainage of Amniotic Fluid, Therapeutic from Products of Conception, Via Natural or Artificial Opening (ICD-10-PCS; 2021-10-27)
PROC: 3E0P7VZ Introduction of Hormone into Female Reproductive, Via Natural or Artificial Opening (ICD-10-PCS; 2021-10-27)
DX: O36.63X0 Maternal care for excessive fetal growth, third trimester, not applicable or unspecified (principal); Z3A.39 39 weeks gestation of pregnancy; Z37.0 Single live birth; O99.62 Diseases of the digestive system complicating childbirth; K21.9 Gastro-esophageal reflux disease without esophagitis; Z86.16 Personal history of COVID-19
CPT/HCPCS: 36415; 59025; 82803; 85014; 85018; 85027; 86592; 86850; 86900; 86901; A9270-GY; J0595; J1885; J2274; J2405; J2590; J7120